=== PATIENT | male | born 1965 | race Caucasian/White ===

== ENCOUNTER 2020-10-08 09:49 | Inpatient (IN) ==
[2020-10-08] MEDS ORDERED: *HR* Propofol 200 MG/20 ML VIAL IVP ONE (11:04)
[2020-10-08] MEDS ORDERED: Lidocaine -MPF 2% 2 ML VIAL ONE (11:04)
[2020-10-08] MEDS ORDERED: *HR* FentaNYL (PF) 100 MCG/2 ML VIAL ONE ×3 (11:04→12:41)
[2020-10-08] MEDS ORDERED: *HR* Midazolam HCl 2 MG/2 ML VIAL ONE (11:04)
[2020-10-08] MEDS ORDERED: Ondansetron 4 MG/2 ML VIAL ONE (11:05)
[2020-10-08] MEDS ORDERED: Lidocaine 1% 0 ML ONE (11:25)
[2020-10-08] MEDS ORDERED: *HR* Succinylcholine 200 MG/10 ML VIAL IVP ONE (11:45)
[2020-10-08] MEDS ORDERED: Albumin Human 5% 25.0 GM/500 ML IV.SOLN ONE (11:50)
[2020-10-08] MEDS ORDERED: *HR* Vasopressin 20 UNIT/ML VIAL ONE (11:50)
[2020-10-08] MEDS ORDERED: *HR* Rocuronium Bromide 50 MG/5 ML VIAL ONE (12:05)
[2020-10-08] MEDS ORDERED: Heparin 1,000 UNITS/500 mL 500 ML ONE (12:06)
[2020-10-08 12:50] LABS: ABG Base Excess -8 mEq/L (-2 to 3); ABG Chloride 87 mEq/L (98-107); ABG Glucose 416 mg/dL (60-95); ABG HCO3 18 mEq/L (21-27); ABG Ionized Calcium 0.99 mmol/L (1.15-1.35); ABG Oxygen Saturation 100 % (95-98); ABG PCO2 35 mmHg (35-45); ABG PH 7.32 pH Units (7.32-7.45); ABG PO2 193 mmHg (85-104); ABG TCO2 19 mEq/L (20-26)
[2020-10-08] MEDS ORDERED: *HR* Dextrose 50 % in Water (Vial) 50 ML VIAL IVP PRN (12:58)
[2020-10-08] MEDS ORDERED: *HR* HYDROMORPHONE 2 MG/ML VIAL ONE (13:34)
[2020-10-08] MEDS ORDERED: Vancomycin 1,500 MG/265 ML IV.SOLN IVPB SCH (14:00)
[2020-10-08] MEDS ORDERED: *HR* Labetalol 20 MG/4 ML SYRINGE IVP ONE (14:03)
[2020-10-08] MEDS ORDERED: *HR* OxyCODONE Immed Rel 5 MG TABLET PO PRN (14:35)
[2020-10-08] MEDS ORDERED: Melatonin 3 MG TABLET PO PRN (14:35)
[2020-10-08] MEDS ORDERED: *HR* HYDROcodone/Acet 5/325 mg TABLET PO PRN (14:35)
[2020-10-08] MEDS ORDERED: Ondansetron 4 MG/2 ML VIAL IVP PRN (14:35)
[2020-10-08] MEDS ORDERED: Naloxone 0.4 MG/ML INJ IVP PRN (14:35)
[2020-10-08] MEDS ORDERED: Acetaminophen 325 MG TABLET PO PRN (14:35)
[2020-10-08] MEDS ORDERED: *HR* Heparin 5,000 UNIT/ML VIAL IVP ONE (15:14)
[2020-10-08] MEDS ORDERED: *HR* Heparin 5,000 UNIT/ML VIAL IVP PRN (15:14)
[2020-10-08 15:26] LABS: Bilirubin,Urine Negative (Negative); Blood,Urine Moderate (Negative); Clarity,Urine Clear (Clear); Color,Urine Yellow (Yellow); Glucose,Urine (UA) >=1000 mg/dL (Normal); Granular Casts,Urine Few per lpf (None Seen); Hyaline Casts,Urine Few per lpf (None Seen); Ketones,Urine 10 mg/dL (Negative); Leukocyte Esterase,Urine Small (Negative); Mucus,Urine Few per lpf (None-Few); Nitrite,Urine Negative (Negative); Protein,Urine Negative (Neg-Trace); RBC,Urine 15-30 per hpf (0-3); Renal Epithelial Cells,Urine Few per hpf (None-Few); Specific Gravity,Urine 1.014 (1.010-1.025); Squamous Epithelial Cell,Urine Few per hpf (None-Few); Transitional Epi Cells,Urine Few per hpf (None-Few); Urobilinogen,Urine Normal (Normal); WBC,Urine 15-30 per hpf (0-3)
[2020-10-08] MEDS: Heparin 25,000UNIT/250ML 1/2NS 25,000 UNIT/250 ML IV.SOLN IVC SCH (15:46)
[2020-10-08 15:47] LABS: Basophils % 0.1 %; Red Cell Distribution Width 11.4 % (11.5-14.5)
[2020-10-08 15:49] LABS: Hematocrit 32.6 % (37.5-50.1); Hemoglobin 11.6 g/dL (12.9-16.9); Lymphocytes # 0.7 K/mcL (0.6-4.6); Lymphocytes % 1.9 %; Mean Corpuscular HGB Conc 35.6 g/dL (31.6-35.5); Mean Corpuscular Hemoglobin 32.6 pg (28.0-33.3); Mean Corpuscular Volume 91.6 fL (83.0-100.0); Mean Platelet Volume 12.4 fL (9.4-12.4); Monocytes # 0.3 K/mcL (0.0-1.3); Neutrophils # 32.7 K/mcL (1.6-8.9); Red Blood Count 3.56 M/mcL (4.19-5.50)
[2020-10-08 15:55] LABS: INR 1.5; Prothrombin Time 17.6 Seconds (9.4-12.1)
[2020-10-08 15:58] LABS: Activated Partial Thrombo Time 33.5 Seconds (26.0-36.0)
[2020-10-08] MEDS ORDERED: *HR* Heparin 5,000 UNIT/ML VIAL SQ SCH (16:00)
[2020-10-08 16:04] LABS: BUN/Creatinine Ratio 36 (6-26); Blood Urea Nitrogen 43 mg/dL (6-20); Calcium 7.7 mg/dL (8.6-10.3); Carbon Dioxide 20 mEq/L (23-29); Chloride 91 mEq/L (98-107); Glucose 313 mg/dL (70-105); Osmolality,Calculated 277 (280-300); Potassium 3.1 mEq/L (3.5-5.1); Sodium 122 mEq/L (136-145); eGFR For African Americans > 60 (> 60); eGFR For Non-African Americans > 60 (> 60)
[2020-10-08 16:12] LABS: White Blood Count 34.4 K/mcL (4.3-11.1)
[2020-10-08] MEDS: DilTIAZem 50 MG/50 ML IV.SOLN IVC SCH ×2 (16:22→20:47)
[2020-10-08 16:48] LABS: Immature Platelets 15.4 % (1.1-6.1); Platelet Count 184 K/mcL (140-400)
[2020-10-08 16:50] LABS: Platelet Clumps Few (Not Present); Platelet Estimate Normal (Normal); Toxic Granulation Present (Not Present)
[2020-10-08 17:20] LABS: Adenovirus Not Detected (Not Detect); Coronavirus 229E Not Detected (Not Detect); Coronavirus HKU1 Not Detected (Not Detect); Coronavirus NL63 Not Detected (Not Detect); Coronavirus OC43 Not Detected (Not Detect); Human Metapneumovirus Not Detected (Not Detect); Human Rhinovirus/Enterovirus Not Detected (Not Detect); Influenza A Subtype 2009 H1 Not Detected (Not Detect); SARS-CoV-2 Not Detected (Not Detect)
[2020-10-08 17:21] LABS: Bordetella Pertussis Not Detected (Not Detect); Chlamydophila pneumoniae Not Detected (Not Detect); Influenza B Not Detected (Not Detect); Mycoplasma pneumoniae Not Detected (Not Detect); Parainfluenza Virus 1 Not Detected (Not Detect); Parainfluenza Virus 2 Not Detected (Not Detect); Parainfluenza Virus 3 Not Detected (Not Detect); Parainfluenza Virus 4 Not Detected (Not Detect); Respiratory Syncytial Virus Not Detected (Not Detect)
[2020-10-08] MEDS: Piperacillin/Tazobactam 3.375 GM in 0.9 % Sodium Chloride Mini Bag 100 ML IVPB SCH (18:32)
[2020-10-08] MEDS ORDERED: *HR* Metoprolol 5 MG/5 ML VIAL IVP ONE (20:41)
[2020-10-08] MEDS ORDERED: 0.9 % Sodium Chloride 500 ML IVC ONE (20:57)
[2020-10-08] MEDS ORDERED: Norepinephrine 4 MG/254 ML IV.SOLN IVC SCH (21:15)
[2020-10-08] MEDS ORDERED: Albumin 25% 25gram/100mL 25 GM/100 ML IV.SOLN IVPB ONE (21:52)
[2020-10-08] MEDS ORDERED: Albumin 25% 25gram/100mL 25 GM/100 ML IV.SOLN ONE (21:56)
[2020-10-08] MEDS: *HR* Heparin 5,000 UNIT/ML VIAL IVP PRN (22:19)
[2020-10-09] MEDS ORDERED: *HR* Metoprolol 5 MG/5 ML VIAL IVP ONE (00:20)
[2020-10-09] MEDS: *HR* Metoprolol 5 MG/5 ML VIAL IVP SCH ×2 (00:32→07:28)
[2020-10-09] MEDS: Insulin LISPRO 300 UNITS/3 ML VIAL SUBQ SCH ×2 (04:19→07:40)
[2020-10-09 05:18] LABS: Basophils % 0.1 %; Lymphocytes % 3.1 %
[2020-10-09 05:20] LABS: Hematocrit 31.1 % (37.5-50.1); Hemoglobin 10.9 g/dL (12.9-16.9); INR 1.5; Immature Granulocytes % 3.4 % (0-4); Lymphocytes # 1.1 K/mcL (0.6-4.6); Mean Corpuscular Hemoglobin 32.8 pg (28.0-33.3); Mean Corpuscular Volume 93.7 fL (83.0-100.0); Monocytes # 1.6 K/mcL (0.0-1.3); Monocytes % 4.8 %; Neutrophils # 30.2 K/mcL (1.6-8.9); Platelet Count 120 K/mcL (140-400); Red Blood Count 3.32 M/mcL (4.19-5.50); Red Cell Distribution Width 11.7 % (11.5-14.5); Segmented Neutrophils % 88.6 %
[2020-10-09] MEDS: Piperacillin/Tazobactam 3.375 GM in 0.9 % Sodium Chloride Mini Bag 100 ML IVPB SCH (05:23)
[2020-10-09 05:26] LABS: White Blood Count 34.1 K/mcL (4.3-11.1)
[2020-10-09] MEDS: *HR* Heparin 5,000 UNIT/ML VIAL IVP PRN (05:29)
[2020-10-09 05:46] LABS: Alanine Aminotransferase 44 Units/L (7-52); Albumin 2.6 g/dL (3.5-5.7); Albumin/Globulin Ratio 1.1 (1.1-2.2); Alkaline Phosphatase 73 Units/L (34-104); Aspartate Amino Transferase 95 Units/L (13-39); BUN/Creatinine Ratio 35 (6-26); Bilirubin,Total 0.6 mg/dL (0.3-1.0); Blood Urea Nitrogen 45 mg/dL (6-20); Calcium 7.1 mg/dL (8.6-10.3); Carbon Dioxide 13 mEq/L (23-29); Chloride 94 mEq/L (98-107); Globulin 2.4 g/dL (2.4-3.5); Glucose 256 mg/dL (70-105); Magnesium 1.8 mg/dL (1.6-2.6); Osmolality,Calculated 276 (280-300); Phosphorous 3.5 mg/dL (2.7-4.5); Potassium 3.7 mEq/L (3.5-5.1); Sodium 123 mEq/L (136-145); Troponin I 0.31 ng/mL (< 0.04); eGFR For African Americans > 60 (> 60); eGFR For Non-African Americans 57 (> 60)
[2020-10-09 05:47] LABS: Platelet Estimate Slight Decrease (Normal); Toxic Granulation Present (Not Present)
[2020-10-09 07:49] VITALS: TEMP 98.2
[2020-10-09] MEDS ORDERED: Isovue-370 500 ML BOTTLE IVP ONE ×2 (07:58→08:29)
[2020-10-09] MEDS ORDERED: *HR* Promethazine 25 MG/ML VIAL IM PRN (08:17)
[2020-10-09] MEDS ORDERED: *HR* LORazepam 2 MG/ML VIAL IVP PRN (08:17)
[2020-10-09] MEDS ORDERED: Perflutren Lipid Microsphere 1.3 ML in 0.9 % Sodium Chloride 8.7 ML IVP PRN (08:24)
[2020-10-09] MEDS ORDERED: D5% in 0.45% NACL 1,000 ML IVC SCH (08:45)
[2020-10-09] MEDS ORDERED: Folic Acid 1 MG in 0.9 % Sodium Chloride 50 ML IVPB ONE (09:00)
[2020-10-09] MEDS ORDERED: Thiamine (B-1) 200 MG in 0.9 % Sodium Chloride 50 ML IVPB ONE (09:00)
[2020-10-09] MEDS ORDERED: Piperacillin/Tazobactam 3.375 GM in 0.9 % Sodium Chloride Mini Bag 100 ML IVPB SCH (10:00)
[2020-10-09] MEDS ORDERED: Famotidine 20 MG/2 ML VIAL IVP ONE (10:41)
[2020-10-09] MEDS: Heparin 25,000UNIT/250ML 1/2NS 25,000 UNIT/250 ML IV.SOLN IVC SCH (10:44)
[2020-10-09] MEDS ORDERED: Vancomycin 1,250 MG/262.5 ML IV.SOLN IVPB SCH ×2 (11:00→23:00)
[2020-10-09] MEDS ORDERED: Clindamycin 900 MG/50 ML 900 MG/50 ML IV.SOLN IVPB SCH (11:00)
[2020-10-09] MEDS ORDERED: Vancomycin 1,750 MG/517.5 ML IV.SOLN IVPB ONE (11:00)
[2020-10-09 11:53] VITALS: O2SAT 98
[2020-10-09 12:02] VITALS: BP 128/56; PULSE 89
[2020-10-09] MEDS ORDERED: Thiamine (B-1) 100 MG, Folic Acid 1 MG, MVI, adult with vitamin K 10 ML in 0.9 % Sodi... IVPB SCH (18:00)
== END 2020-10-09 12:22 | disposition short-term general hospital (02) | DRG 854 ==
LOC: ICNU 10:48
PROVIDERS: ADMIT Family Medicine; ATTEND Family Medicine